=== PATIENT | female | born 1990 | race Caucasian/White ===

== ENCOUNTER 2016-12-17 15:00 | Emergency (ER) | payer OTHER ==
[2016-12-17 14:26] LABS: URINE BILIRUBIN NEGATIVE (NEGATIVE); URINE BLOOD NEGATIVE (NEGATIVE); URINE GLUCOSE (UA) NEGATIVE (NEGATIVE); URINE LEUKOCYTE ESTERASE TRACE (NEGATIVE); URINE NITRITE NEGATIVE (NEGATIVE); URINE PROTEIN NEGATIVE (NEGATIVE); URINE UROBILINOGEN NORMAL (0-1 mg/dl)
[2016-12-17 14:27] LABS: URINE APPEARANCE HAZY; URINE COLOR YELLOW
[2016-12-17 14:37] LABS: URINE RBC 0 /hpf; URINE WBC RARE /hpf
[2016-12-17 14:38] LABS: URINE AMORPHOUS SEDIMENT 1+; URINE BACTERIA RARE
== END 2016-12-17 16:00 | disposition home or self-care (01) ==
LOC: ED 15:00 → EDSTATUS 15:02 → ED 16:00
DX: O9A.212 Injury, poisoning and certain other consequences of external causes complicating pregnancy, second trimester (principal); S39.012A Strain of muscle, fascia and tendon of lower back, initial encounter; Z3A.27 27 weeks gestation of pregnancy; V43.52XA Car driver injured in collision with other type car in traffic accident, initial encounter; Y92.410 Unspecified street and highway as the place of occurrence of the external cause
CPT/HCPCS: 81001; 99282 ×2; 59050; 81002; G0463